=== PATIENT | female | born 1945 | race Caucasian/White ===

== ENCOUNTER 2022-01-07 14:19 | Outpatient (CLI) | payer MEDICARE, OTHER | END 2022-01-07 14:20 | disposition home or self-care (01) | LOC: CSHULT 14:19 | PROVIDERS: ATTEND Urology | DX: C67.9 Malignant neoplasm of bladder, unspecified (principal); Z87.442 Personal history of urinary calculi; N28.1 Cyst of kidney, acquired; Z90.5 Acquired absence of kidney | CPT/HCPCS: 76770 ==